=== PATIENT | male | born 1985 | race Caucasian/White ===

== ENCOUNTER → 2016-05-20 | Outpatient (CLI) | payer BC, OTHER ==
--- NOTE | 2016-05-20 14:06 | DIAGNOSTIC IMAGING REPORT ---
ULTRASOUND SOFT TISSUES NECK CLINICAL HISTORY: Right-sided neck mass. COMPARISON STUDY: No priors. FINDINGS: Real-time, grayscale, and color flow sonography of the soft tissues of the right neck is performed at the indicated site of interest. A normal right submandibular gland is identified in this region. There is a small benign-appearing submandibular and cervical lymph node which measures up to 5 mm in short axis. These maintain a normal fatty hilum. No concerning mass or fluid collection is seen. IMPRESSION: 1. No concerning mass or fluid collection is identified. 2. Small benign-appearing cervical/submandibular lymph nodes are incidentally noted in this region. Electronically signed by: Terrell Stock M.D. 05/20/2016 2:04 PM Dictated Date/Time: 05/20/2016 2:03 PM
== END | disposition home or self-care (01) ==
LOC: C.ULTR 13:38
PROVIDERS: ATTEND Family Medicine
DX: R22.1 Localized swelling, mass and lump, neck (principal)